=== PATIENT | male | born 2000 | race Caucasian/White ===

== ENCOUNTER 2021-01-30 11:35 | Inpatient (IN) | payer OTHER ==
[~2021-01-30] VITALS: Ht 185.4 cm; Wt 83.6 kg
[2021-01-30 13:46] LABS: HEMATOCRIT 45.5 % (42.0-52.0); HEMOGLOBIN 14.3 g/dl (13.5-17.5); MEAN CORPUSCULAR HEMOGLOBIN 28.6 pg (27.0-33.0); MEAN CORPUSCULAR HGB CONC 31.4 g/dl (32.0-36.5); PLATELET COUNT, AUTOMATED 232 10^3/uL (150-450); WHITE BLOOD COUNT 6.3 10^3/uL (4.0-10.0)
[2021-01-30 14:25] LABS: ACETAMINOPHEN LEVEL < 2.0 UG/ML (10.0-30.0); ALBUMIN 3.7 GM/DL (3.2-5.2); ALT/SGPT 42 U/L (12-78); BILIRUBIN,DIRECT 0.1 MG/DL (0.0-0.2); BILIRUBIN,TOTAL 0.4 MG/DL (0.2-1.0); BLOOD UREA NITROGEN 16 MG/DL (7-18); CALCIUM LEVEL 9.9 MG/DL (8.5-10.1); CARBON DIOXIDE LEVEL 29 MEQ/L (21-32); CHLORIDE LEVEL 106 MEQ/L (98-107); CREATININE FOR GFR 0.99 MG/DL (0.70-1.30); ETHYL ALCOHOL (ETHANOL) < 0.003 % (0.000-0.010); GLUCOSE, FASTING 98 MG/DL (70-100); POTASSIUM SERUM 4.5 MEQ/L (3.5-5.1); SALICYLATE LEVEL < 1.7 MG/DL (5.0-30.0); SODIUM LEVEL 139 MEQ/L (136-145); TOTAL PROTEIN 7.4 GM/DL (6.4-8.2)
[2021-01-30 14:37] LABS: AMPHETAMINES LEVEL URINE NEGATIVE (NEGATIVE); BARBITURATES URINE NEGATIVE (NEGATIVE); BENZODIAZEPINES URINE NEGATIVE (NEGATIVE); CANNABINOIDS URINE NEGATIVE (NEGATIVE); COCAINE METABOLITE URINE NEGATIVE (NEGATIVE); METHADONE URINE NEGATIVE (NEGATIVE); OPIATES URINE NEGATIVE (NEGATIVE); PHENCYCLIDINE URINE NEGATIVE (NEGATIVE)
[2021-01-30] MEDS ORDERED: MOM 30ML SUSPENSION UDC PO PRN (16:20)
[2021-01-30] MEDS ORDERED: ACETAMINOPHEN TAB 650MG DOSE (2X325MG) PO PRN (16:20)
[2021-01-30] MEDS ORDERED: MAALOX 30 ML SUSP *UDC PO PRN (16:20)
[2021-01-30] MEDS ORDERED: traZODone 50 MG TAB PO PRN (16:20)
[2021-01-30 17:35] LABS: RSV AMPLIFICATION NEGATIVE (NEGATIVE)
[2021-01-30 18:44] VITALS: BP 130/70
[2021-01-31 06:35] VITALS: BP 112/54
[2021-01-31] MEDS: FLUoxetine 10 MG CAP PO SCH (09:25)
--- NOTE | 2021-01-31 10:24 | MHHPE ---
[facility] HISTORY AND PHYSICAL DATE OF ADMISSION: 01/30/2021 IDENTIFYING DATA: He is a 20-year-old male, single from [place], was admitted because of suicidal thoughts. CHIEF COMPLAINT: I had suicidal thoughts; there were vague plans to shoot myself. HISTORY OF PRESENT ILLNESS: The patient has been in the for the last 9 months. He has been depressed for the last three months. He has worsened in the last two to three weeks and he is having some suicidal thoughts. He went to the behavioral health services at [place]. From there, he was transferred to [facility]. This is the 3rd psychiatric hospitalization. When he was younger, he had two psychiatric hospitalizations for depression, but he does not know what medication he was on, he had stopped taking it. Complaints of decreased sleep, decreased energy, hopeless, worthlessness, poor concentration. The stress of . The patient thinks that if he is out of the he will be fine. PAST PSYCHIATRIC HISTORY: He had two psychiatric hospitalizations in [place]. Not on any medication currently. SUICIDAL HISTORY: The patient attempted suicide once by trying to jump off his garage roof and one time he would sit in the cold in the winter to end it all. Denies any history of manic episodes or psychosis or anxiety. SUBSTANCE ABUSE HISTORY: Denies substance abuse or alcohol use. LEGAL HISTORY: Denies legal problems. MEDICAL HISTORY: Denies medical problems. FAMILY HISTORY: Denies any family history of mental illness. PERSONAL HISTORY: He was raised by his mother. He has two half brothers, two half sisters and one full sister. Completed high school graduation. There is no history of physical or sexual abuse. MENTAL STATUS EXAMINATION: Tall, well-built male who is male. He is cooperative, made good eye contact. Psychomotor activity is normal. Speech is low tone; however, goal directed. Coherent. Denied any current suicidal thoughts or any plans. His insight and judgment are fair. Memory immediate, remote, recent are good. VITAL SIGNS: Temperature 98.8, pulse is 64, respiratory rate is 14, blood pressure 112/54, pulse oximetry 97. REVIEW OF SYSTEMS: Constitutional: Negative for night sweats, weight loss, fever. Negative for epistasis, headache, hearing loss. Respiratory: No cough, no shortness of breath. No wheezing. Cardiovascular: Negative for chest pain or dyspnea. Gastrointestinal: No abdominal pain. No change in bowel habits. Genitourinary: No dysuria, no trouble voiding, no hematuria. Neurological: Negative for gait disturbances, numbness, tingling or dizziness. His gait is normal. No joint pain. DIAGNOSES: Major depressive disorder, recurrent. TREATMENT/RECOMMENDATION: 1. The patient will be admitted to [facility]. 2. He will be followed by hospitalist for medical needs. 3. The patient will be seen by social and political studies professor and case management. 4. The patient will be placed on appropriate precautions, like suicide precaution. He will receive individual, group and Milieu therapy. 5. Medications. Will prescribe him Prozac 10 mg once daily. The side effects of the medicine was explained to the patient. Estimated length of stay 4 to 5 days. Time spent is 45 minutes.
--- NOTE | 2021-01-31 13:43 | HPEPDOC ---
General Date of Admission Jan 30, 2021 at 16:20 Date of Service: Jan 31, 2021 Chief Complaint The patient is a 20-year-old male admitted with a reason for visit of Unspecified Depressive Disorder. 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 He is being examined here for medical history and physical. He denies any complaints today. 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 depression several broken bones, right collar bone, pelvis and right ankle Surgical History tonsillectomy Family History Significant Family History: Cancer (maternal grandmother), Other (maternal grand father, mom and sister with thyroid problems) Social History * Smoker: Denies Alcohol: Denies Drugs: denies A-FIB/CHADSVASC A-FIB History Current/History of A-Fib/PAF?: No Review of Systems Constitutional: Denies: Chills, Fever, Night Sweats Eyes: Denies: Pain, Vision change ENT: Denies: Head Aches, Ear Pain, Dysphagia Skin: Denies: Rash, Lesions, Breakdown Pulmonary: Denies: Dyspnea, Cough Cardiovascular: Denies: Chest Pain, Palpitations, Orthopnea, Paroxysmal Noc. Dyspnea, Lt Headedness Gastrointestinal: Denies: Nausea, Vomiting, Abdominal Pain, Diarrhea Genitourinary: Denies: Dysuria, Frequency, Incontinence, Retention Physical Examination General Exam: Positive: Alert, Cooperative, No Acute Distress Eye Exam: Positive: PERRLA, Conjunctiva & lids normal, EOMI; Negative: Sclera icteric ENT Exam: Positive: Atraumatic, Mucous membr. moist/pink, Pharynx Normal Neck Exam: Positive: Supple; Negative: JVD, thyromegaly Chest Exam: Positive: Clear to auscultation, Normal air movement Heart Exam: Positive: Rate Normal, Regular Rhythm, Normal S1, Normal S2; Negative: Murmurs, Rubs Abdomen Exam: Positive: Normal bowel sounds, Soft; Negative: Tenderness, Hepatospenomegaly Vital Signs Vital Signs Date Time Temp Pulse Resp B/P (MAP) Pulse Ox O2 Delivery O2 Flow Rate FiO2 01/31/21 06:35 98.8 64 14 112/54 (73) 97 Room Air Laboratory Data Labs 24H Laboratory Tests 2 01/30/21 13:31: Nucleated Red Blood Cells % (auto) 0.0, Anion Gap 4L, Calcium Level 9.9, Total Bilirubin 0.4, Direct Bilirubin 0.1, Aspartate Amino Transf (AST/SGOT) 25, Alanine Aminotransferase (ALT/SGPT) 42, Alkaline Phosphatase 80, Total Protein 7.4, Albumin 3.7, Albumin/Globulin Ratio 1.0, Thyroid Stimulating Hormone (TSH) 5.230H, Salicylates Level < 1.7L, Acetaminophen Level < 2.0L, Ethyl Alcohol Level < 0.003 01/30/21 13:56: Urine Opiates Screen NEGATIVE, Urine Methadone Screen NEGATIVE, Urine Barbiturates Screen NEGATIVE, Urine Phencyclidine Screen NEGATIVE, Urine Amphetamines Screen NEGATIVE, Urine Benzodiazepines Screen NEGATIVE, Urine Cocaine Metabolite Screen NEGATIVE, Urine Cannabinoids Screen NEGATIVE 01/30/21 16:42: Coronavirus (COVID-19)(PCR) NEGATIVE, Influenza Type A (RT-PCR) NEGATIVE, Influenza Type B (RT-PCR) NEGATIVE, Respiratory Syncytial Virus (PCR) NEGATIVE CBC/BMP Laboratory Tests 01/30/21 13:31 Assessment/Plan 20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 He is being examined here for medical history and physical. He denies any complaints today. Depression as per psychiatry No active medical problems at this time ELISE TAPIA MD Jan 31, 2021 12:40
[2021-01-31 16:10] VITALS: BP 128/60
[2021-02-01 06:25] VITALS: BP 139/71
[2021-02-01] MEDS: FLUoxetine 10 MG CAP PO SCH (08:14)
--- NOTE | 2021-02-01 12:44 | MHIPN ---
[facility] PROGRESS NOTE DATE: 02/01/2021 CHIEF COMPLAINT: "I'm feeling fine. 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 He reported at [facility] that he was severely depressed and needed help. He has history of previous psychiatric hospitalizations, does not remember the medication he took, was feeling hopeless, worthless. Patient attempted suicide once, trying to jump off the garage roof. Currently, the patient is improving and reports that he slept well. MENTAL STATUS EXAMINATION: Tall, well-built, cooperative. Made good eye contact. Psychomotor activity is normal. Mood is euthymic. Affect appropriate for mood. Denies auditory or visual hallucinations. Denies suicidal or homicidal ideas. VITAL SIGNS: Temperature 98.3, pulse 67, respiratory rate 20, blood pressure 139/71, pulse oximetry 99. LABORATORY STUDIES: CBC within normal limits. CMP within normal limits. TSH 5.2. It was higher, so we will repeat it. CURRENT MEDICATIONS: - Prozac 10 mg once daily DIAGNOSES: 1. Depression, unspecified. 2. Rule out major depressive disorder. ESTIMATED LENGTH OF STAY: 2-3 days. TIME SPENT: 25 minutes.
[2021-02-01 16:14] VITALS: BP 132/60
[2021-02-02 06:55] VITALS: BP 132/64
[2021-02-02] MEDS ORDERED: FLUO10CA16 PO (08:37)
[2021-02-02] MEDS: FLUoxetine 10 MG CAP PO SCH (09:03)
--- NOTE | 2021-02-02 13:57 | MHDS ---
[facility] DISCHARGE SUMMARY DATE OF ADMISSION: 01/30/2021 DATE OF DISCHARGE: 02/02/2021 DIAGNOSIS: Depression, unspecified. Rule out major depressive disorder. 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 He reported at [facility] that he was severely depressed and needed help. He has a history of previous psychiatric hospitalizations. He does not remember the medications he took in the past. He was feeling hopeless and worthless. COURSE IN THE HOSPITAL: The patient was depressed, isolative, was not attending any groups. He was placed on fluoxetine 10 mg once daily. He also was provided with individual, group, and milieu therapy. His mood improved. He related well with the staff, no behavioral problems. Attended groups. Denied any side effects from the medication. Denied any suicidal or homicidal ideas. MENTAL STATUS EXAMINATION: Tall, well-built, cooperative. Made good eye contact. Psychomotor activity is normal. Mood is euthymic. Affect is appropriate for the mood. Denied auditory as well as visual hallucinations. Denied suicidal and homicidal ideas. Memory immediate, remote, recent are good. VITAL SIGNS: Temperature 98.3, pulse is 48, respiratory rate is 20, blood pressure is 132/64, pulse oximetry 98. LABS: CBC within normal limits. CMP within normal limits. Toxicology was negative. DISCHARGE MEDICATIONS: Fluoxetine 10 mg once daily. The patient will be discharged to [facility]. He will be followed up at [facility]. Time spent is less than 30 minutes. MTDD
== END 2021-02-02 13:40 | disposition home or self-care (01) | DRG 881 ==
LOC: M ED 11:35 → M ED INP 16:20 → M PSY 18:38
PROVIDERS: ADMIT Psychiatry & Neurology Psychiatry; ATTEND Psychiatry & Neurology Psychiatry
DX: F32.9 Major depressive disorder, single episode, unspecified (principal)